=== PATIENT | female | born 1990 | race Caucasian/White ===

== ENCOUNTER 2016-07-02 10:46 | Emergency (ER) | payer SELFPAY ==
[~2016-07-02] VITALS: Ht 160 cm; Wt 63.5 kg
[2016-07-02 10:46] VITALS: BP 118/88; PULSE 98; RESP 19; TEMP 98.2; O2SAT 99
--- NOTE | 2016-07-02 10:46 | NUR ---
BROUGHT BACK TO BED #7 AND TRIAGED. REPORT GIVEN TO JUSTINO
--- NOTE | 2016-07-02 10:49 | NUR ---
ER at bedside examining patient.
--- NOTE | 2016-07-02 10:50 | NUR ---
Pt presents to ED c/o L 4th digit lac x 10min prior to ED visit w/ thomastter. Pt denies med hx
[2016-07-02] MEDS ORDERED: BACITRACIN 1 GM OINT TP ONE (11:00)
[2016-07-02] MEDS ORDERED: DIPH-TET-PERTUS Vaccine 0.5 ML VIAL (ADACEL) I.M. ONE (11:00)
[2016-07-02] MEDS ORDERED: LIDOCAINE 1% 10 MG/ML, 20 ML MDV INJ ONE (11:00)
--- NOTE | 2016-07-02 11:15 | NUR ---
Pt tolerated medication well.
--- NOTE | 2016-07-02 11:31 | NUR ---
Pt tolerating wound repair well.
[2016-07-02 11:50] VITALS: BP 118/88; PULSE 98; RESP 19; TEMP 98.2; O2SAT 99
--- NOTE | 2016-07-02 11:50 | NUR ---
Patient given written and verbal discharge instructions and verbalizes understanding. ER MD discussed with patient the results and treatment provided. Patient in stable condition. ID arm band removed. Patient educated on pain management and to follow up with PMD. Pain Scale 0. Opportunity for questions provided and answered.
== END 2016-07-02 11:50 | disposition home or self-care (01) ==
LOC: SED 10:46
DX: S61.215A Laceration without foreign body of left ring finger without damage to nail, initial encounter (principal); Z88.6 Allergy status to analgesic agent; Z88.8 Allergy status to other drugs, medicaments and biological substances; W27.8XXA Contact with other nonpowered hand tool, initial encounter; Y93.89 Activity, other specified; Y92.89 Other specified places as the place of occurrence of the external cause; Y99.8 Other external cause status
CPT/HCPCS: 12001; 90471; 90715; 99283; J2001